=== PATIENT | female | born 2000 | race Caucasian/White ===

== ENCOUNTER 2023-08-07 09:08 | Inpatient (IN) | payer BC ==
[~2023-08-07] VITALS: Ht 165.1 cm; Wt 57.2 kg
[~2023-08-07 09:08] MED LIST: METAMUCIL FIBE3.4 GM PO; MULTI-VITAMIN1 EACH PO; PROBIOTIC & AC1 EACH PO; PROVENTIL HFA6.7 GM INH
[2023-08-07] MEDS ORDERED: ACETAMINOPHEN 1000 MG/100 ML IV STA (09:17)
[2023-08-07] MEDS ORDERED: ONDANSETRON HCL INJ 2MG/ML 2ML 2 MG/ML VIAL IV STA (09:17)
[2023-08-07 09:43] LABS: BASOPHILS % 0.3 % (0.0-1.0); EOSINOPHILS % 0.4 % (0.0-6.0); HEMATOCRIT 37.8 % (34.2-44.1); HEMOGLOBIN 13.4 g/dL (12.0-16.0); LYMPHOCYTES # (AUTO) 1.6 (1.0-3.2); LYMPHOCYTES % 15.6 % (18.0-39.1); MEAN CORPUSCULAR HEMOGLOBIN 30.2 pg (28-32); MEAN CORPUSCULAR HGB CONC 35.4 g/dL (31-35); MEAN CORPUSCULAR VOLUME 85.1 fL (81-99); MONOCYTES # (AUTO) 0.7 (0.2-0.8); MONOCYTES % 6.7 % (4.4-11.3); NEUTROPHILS # (AUTO) 7.7 (2.1-6.9); NEUTROPHILS % 76.7 % (38.7-80.0); PLATELET COUNT 343 x10e3/uL (140-360); RED BLOOD COUNT 4.44 x10e6/uL (3.6-5.1); WHITE BLOOD COUNT 10.01 x10e3/uL (4.8-10.8)
[2023-08-07 09:49] LABS: CLARITY,URINE CLOUDY (CLEAR); COLOR,URINE YELLOW (YELLOW); LEUKOCYTE ESTERASE ,URINE NEGATIVE (NEGATIVE); NITRITE,URINE NEGATIVE (NEGATIVE); PROTEIN,URINE DIPSTICK 1+ (NEGATIVE)
[2023-08-07 09:50] LABS: KETONES,URINE 2+ (NEGATIVE); URINE UROBILINOGEN 0.2 mg/dL (0.2 - 1)
[2023-08-07 10:02] LABS: BACTERIA,URINE MODERATE /HPF; EPITHELIAL CELLS,URINE FEW /LPF; RBC,URINE >50 /HPF (0-5)
[2023-08-07 10:12] LABS: CALCIUM 9.6 mg/dL (8.4-10.2); CREATININE, SERUM 0.9 mg/dL (0.57-1.11)
[2023-08-07] MEDS ORDERED: KETOROLAC TROMETHAMINE 30 MG/ML VIAL ONE (12:21)
[2023-08-07] MEDS ORDERED: KETOROLAC TROMETHAMINE 30 MG/ML VIAL IV STA (12:23)
[2023-08-07] MEDS ORDERED: LACTATED RINGER'S 1,000 ML ONE (12:29)
[2023-08-07] MEDS ORDERED: LACTATED RINGER'S 1,000 ML IV ONE (12:30)
[2023-08-07] MEDS ORDERED: METOCLOPRAMIDE HCL 10 MG/2ML VIAL IV ONE (13:30)
[2023-08-07] MEDS: D5.45%NS/KCL 20MEQ 1,000 ML IV SCH ×2 (13:42→21:33)
[2023-08-07] MEDS: FENTANYL CITRATE/PF 100MCG/2 ML INJ IV ONE ×2 (13:42→14:59)
[2023-08-07] MEDS: ONDANSETRON HCL INJ 2MG/ML 2ML 2 MG/ML VIAL IV PRN ×2 (13:51→18:18)
[2023-08-07] MEDS: Morphine 4mg INJECTION 4 MG/ML INJ IV PRN ×2 (13:52→18:18)
[2023-08-07] MEDS ORDERED: GABAPENTIN400 MG PO (15:56)
[2023-08-07] MEDS ORDERED: ULTRAM 50MG50 MG PO (15:56)
[2023-08-07 16:19] VITALS: BP 117/59; PULSE 58; RESP 16; TEMP 98.7; O2SAT 100
[2023-08-07 20:00] VITALS: BP 100/46; PULSE 60; RESP 17; TEMP 97; O2SAT 100
[2023-08-07 20:50] VITALS: BP 100/46; PULSE 60; RESP 17; TEMP 36.1; O2SAT 100
[2023-08-08] VITALS: BP 93/49; PULSE 101; RESP 16; TEMP 98.1; O2SAT 99
[2023-08-08 04:00] VITALS: BP 106/64; PULSE 60; RESP 16; TEMP 98.1; O2SAT 99
[2023-08-08] MEDS: D5.45%NS/KCL 20MEQ 1,000 ML IV SCH (05:34)
[2023-08-08 05:50] LABS: BASOPHILS % 0.7 % (0.0-1.0); EOSINOPHILS # (AUTO) 0.1 (0.0-0.4); EOSINOPHILS % 2.3 % (0.0-6.0); HEMATOCRIT 34.1 % (34.2-44.1); HEMOGLOBIN 12.5 g/dL (12.0-16.0); LYMPHOCYTES # (AUTO) 2.4 (1.0-3.2); LYMPHOCYTES % 40.5 % (18.0-39.1); MEAN CORPUSCULAR HEMOGLOBIN 32.6 pg (28-32); MEAN CORPUSCULAR HGB CONC 36.7 g/dL (31-35); MONOCYTES # (AUTO) 0.7 (0.2-0.8); MONOCYTES % 11.8 % (4.4-11.3); NEUTROPHILS # (AUTO) 2.7 (2.1-6.9); NEUTROPHILS % 44.4 % (38.7-80.0); PLATELET COUNT 224 x10e3/uL (140-360); RED BLOOD COUNT 3.83 x10e6/uL (3.6-5.1); RED CELL DISTRIBUTION WIDTH 14.1 % (11.7-14.4)
[2023-08-08 06:05] LABS: ANION GAP 11.1 mmol/L (8-16); CALCIUM 8.8 mg/dL (8.4-10.2); CREATININE, SERUM 0.82 mg/dL (0.57-1.11); POTASSIUM 4.1 mmol/L (3.5-5.1)
[2023-08-08 08:30] VITALS: BP 106/60; PULSE 74; RESP 18; TEMP 98.6; O2SAT 98
[2023-08-08] MEDS ORDERED: SIMETHICONE 80 MG CHEW PO PRN (08:30)
[2023-08-08] MEDS ORDERED: METOPROLOL TARTRATE INJ 1 MG/ML VIAL IV PRN (08:30)
[2023-08-08] MEDS ORDERED: TRAMADOL HCL 50 MG TAB PO PRN (08:30)
[2023-08-08] MEDS ORDERED: ACETAMINOPHEN 325 MG TAB PO PRN (08:30)
[2023-08-08] MEDS ORDERED: DOCUSATE SODIUM 100 MG CAP PO PRN (08:30)
[2023-08-08 09:00] VITALS: BP 106/64; PULSE 74; RESP 18; TEMP 98.6; O2SAT 98
[2023-08-08] MEDS ORDERED: PSYLLIUM 6GM PACKET PO SCH (09:00)
[2023-08-08] MEDS ORDERED: GABAPENTIN 300 MG CAP PO PRN (09:30)
[2023-08-08] MEDS ORDERED: CEPHALEXIN500 MG PO (15:01)
[2023-08-08] MEDS ORDERED: ONDANSETRON ODT4 MG PO (15:01)
[2023-08-08] MEDS ORDERED: FAMOTIDINE 20 MG TAB PO SCH (16:30)
[2023-08-09] MEDS ORDERED: ASPIRIN 81 MG ENTERIC COATED PO SCH (09:00)
== END 2023-08-08 15:33 | disposition home or self-care (01) | DRG 690 ==
LOC: ER 09:19 → ERHOLD 13:24 → MED/SURG2 14:50
PROVIDERS: ADMIT Internal Medicine; ATTEND Internal Medicine
DX: N13.6 Pyonephrosis (principal); E87.20 Acidosis, unspecified; R31.29 Other microscopic hematuria; R11.2 Nausea with vomiting, unspecified; N23 Unspecified renal colic; Z20.822 Contact with and (suspected) exposure to COVID-19
CPT/HCPCS: 36415; 74176; 80048; 81001; 81025; 85025; 99284; J0696; J1885; J2270; J2405; J2765; U0002